=== PATIENT | female | born 1955 | race American Indian/Alaskan Native ===

== ENCOUNTER 2018-09-13 10:46 | Outpatient (CLI) | payer MEDICAID | END 2018-09-13 10:47 | disposition home or self-care (01) | LOC: C.LAB 10:46 | DX: N18.2 Chronic kidney disease, stage 2 (mild) (principal) ==

== ENCOUNTER 2018-09-13 10:54 | Outpatient (CLI) | payer MEDICAID | END 2018-09-13 10:55 | disposition home or self-care (01) | LOC: C.LAB 10:54 | DX: Z01.818 Encounter for other preprocedural examination (principal) ==